=== PATIENT | male | born 1995 | race African-American/Black ===

== ENCOUNTER 2018-10-10 22:18 | Emergency (ER) | payer OTHER ==
[~2018-10-10] VITALS: Ht 185.4 cm; Wt 95.3 kg
[~2018-10-10 22:18] MED LIST: BACTRIM DS TAB1 EACH PO; DOXYCYCLINE 10100 MG PO
[2018-10-10] MEDS ORDERED: MAXIMUM DAILY1 EACH PO (22:24)
[2018-10-10] MEDS ORDERED: IBUPROFEN 600600 M1 PO (23:22)
[2018-10-10] MEDS ORDERED: CHLORASEPTIC177 ML MUCOUS MEM (23:22)
[2018-10-10 23:48] VITALS: BP 122/81
== END 2018-10-10 23:49 | disposition home or self-care (01) ==
LOC: ER 22:18
DX: J02.9 Acute pharyngitis, unspecified (principal); M19.021 Primary osteoarthritis, right elbow; Z88.0 Allergy status to penicillin